=== PATIENT | female | born 1990 ===

== ENCOUNTER 2017-09-24 10:00 | Inpatient (IN) | payer OTHER ==
[2017-09-24] MEDS ORDERED: NS 0.9% 1000 ML* 1,000 ML IV SCH (10:45)
[2017-09-24 10:51] LABS: ABS Basophils 0.1 10^3/ul (0-0.2); ABS Eosinophils 0 10^3/ul (0-0.6); ABS Lymphocytes 1.4 10^3/ul (1.0-4.8); ABS Monocytes 0.5 10^3/ul (0-0.8); ABS Neutrophils 8.3 10^3/ul (1.5-7.7); ABS Nucleated RBC 0 10^3/ul; Eosinophil % 0.2 % (0-6); Hematocrit 31 % (35-47); Hemoglobin 10.3 g/dl (12.0-16.0); Lymphocyte % 13.7 % (25-47); Mean Corpuscular HGB Conc 33 g/dl (31-36); Mean Corpuscular Hemoglobin 28 pg (27-31); Mean Corpuscular Volume 85 fL (80-97); Mean Platelet Volume 8 um3 (7.4-10.4); Nucleated Red Blood Cells % 0; Platelet Count 247 10^3/ul (150-450); Red Blood Count 3.66 10^6/ul (4.0-5.4); Red Cell Distribution Width 15 % (10.5-15); White Blood Count 10.4 10^3/ul (3.5-10.8)
[2017-09-24] MEDS ORDERED: Oxytocin in LR* 20 UNITS/1,000 ML BAG IVPB SCH ×2 (11:00→18:00)
[2017-09-24] MEDS: Insulin REGULAR(*) 1 UNITS UNIT SUBCUT SCH ×5 (12:33→22:01)
[2017-09-24] MEDS ORDERED: OBEPIDURAL* 250 ML EPIDURAL ONE (14:18)
[2017-09-24] MEDS ORDERED: Sodium Citrate/Citric Acid* 15 ML UDC PO PRN (15:01)
[2017-09-24] MEDS ORDERED: Phenylephrine IV* 40 MCG/ML 10 ML SYRINGE IV PUSH PRN ×2 (15:01)
[2017-09-24] MEDS ORDERED: OBEPIDURAL* 250 ML EPIDURAL SCH (16:00)
[2017-09-24] MEDS ORDERED: Dibucaine 1% 28.35 GM TUBE PR PRN (17:39)
[2017-09-24] MEDS ORDERED: Glycerin ADULT SUPP PR PRN (17:39)
[2017-09-24] MEDS ORDERED: Acetaminophen TAB* 325 MG PO PRN (17:39)
[2017-09-24] MEDS ORDERED: Witch Hazel PAD* JAR TOPICAL PRN (17:39)
[2017-09-24] MEDS ORDERED: Lidocaine 1% MPF* 2 ML VIAL ONE (18:16)
[2017-09-24] MEDS ORDERED: Simethicone TAB* 80 MG TAB.CHEW PO SCH (21:00)
[2017-09-24] MEDS: Insulin LISPRO* 1 UNITS UNIT SUBCUT SCH (22:22)
[2017-09-25] MEDS: Ibuprofen TAB* 600 MG PO PRN ×4 (01:13→20:32)
[2017-09-25 05:54] LABS: ABS Basophils 0 10^3/ul (0-0.2); ABS Eosinophils 0 10^3/ul (0-0.6); ABS Lymphocytes 1.8 10^3/ul (1.0-4.8); ABS Neutrophils 10.6 10^3/ul (1.5-7.7); ABS Nucleated RBC 0 10^3/ul; Eosinophil % 0.1 % (0-6); Hematocrit 29 % (35-47); Hemoglobin 9.5 g/dl (12.0-16.0); Lymphocyte % 13.3 % (25-47); Mean Corpuscular HGB Conc 33 g/dl (31-36); Mean Corpuscular Hemoglobin 28 pg (27-31); Mean Corpuscular Volume 85 fL (80-97); Mean Platelet Volume 8 um3 (7.4-10.4); Nucleated Red Blood Cells % 0; Platelet Count 219 10^3/ul (150-450); Red Blood Count 3.39 10^6/ul (4.0-5.4); Red Cell Distribution Width 15 % (10.5-15); White Blood Count 13.5 10^3/ul (3.5-10.8)
[2017-09-25] MEDS: Insulin LISPRO* 1 UNITS UNIT SUBCUT SCH ×4 (07:22→20:32)
[2017-09-25] MEDS: Docusate CAP* 100 MG PO SCH ×4 (08:45→20:32)
[2017-09-25] MEDS: Ferrous Gluconate TAB* 324 MG TAB PO SCH ×2 (08:45→20:32)
[2017-09-26] MEDS: Ibuprofen TAB* 600 MG PO PRN ×2 (04:23→10:34)
[2017-09-26] MEDS: Insulin LISPRO* 1 UNITS UNIT SUBCUT SCH ×2 (06:45→10:47)
[2017-09-26 07:55] VITALS: BP 112/78
[2017-09-26] MEDS: Ferrous Gluconate TAB* 324 MG TAB PO SCH (09:12)
[2017-09-26] MEDS: Docusate CAP* 100 MG PO SCH (09:12)
== END 2017-09-26 13:40 | disposition home or self-care (01) | DRG 775 ==
LOC: MCHOBOUT 10:00 → MCHOB 10:16
PROVIDERS: ADMIT Obstetrics & Gynecology; ATTEND Midwife
PROC: 10907ZC Drainage of Amniotic Fluid, Therapeutic from Products of Conception, Via Natural or Artificial Opening (ICD-10-PCS; principal; 2017-09-24)
PROC: 10E0XZZ Delivery of Products of Conception, External Approach (ICD-10-PCS; 2017-09-24)
PROC: 4A1HXCZ Monitoring of Products of Conception, Cardiac Rate, External Approach (ICD-10-PCS; 2017-09-24)
DX: O69.81X0 Labor and delivery complicated by cord around neck, without compression, not applicable or unspecified (principal); O24.424 Gestational diabetes mellitus in childbirth, insulin controlled; O90.81 Anemia of the puerperium; Z3A.38 38 weeks gestation of pregnancy; Z37.0 Single live birth; O69.82X0 Labor and delivery complicated by other cord entanglement, without compression, not applicable or unspecified; Z83.3 Family history of diabetes mellitus
CPT/HCPCS: 36415; 85025; 86850; 86900; 86901; A9270-GY

== ENCOUNTER 2021-01-04 07:59 | Observation (INO) ==
[~2021-01-04 07:59] MED LIST: Buffered Lidocaine 1% SYRIN 1 ml INTRADERM ONE; Famotidine IV 10 MG/ML 2 ml VIAL (20 mg) IV ONE; Lactated Ringers 1000 ml BAG 1,000 ML IV SCH
[2021-01-04] MEDS ORDERED: Famotidine IV 10 MG/ML 2 ml VIAL (20 mg) ONE (08:20)
[2021-01-04] MEDS ORDERED: ceFOXitin 2 GM IVPREMIX 2 GM/50 ML BAG ONE (08:20)
[2021-01-04] MEDS ORDERED: Midazolam 5 mg/5 ml VIAL 1 mg/ml 5 ml VIAL (5 mg) ONE (09:39)
[2021-01-04] MEDS ORDERED: Rocuronium 50 mg VIAL 10 mg/ml 5 ml VIAL (50 mg) ONE ×2 (09:45→11:00)
[2021-01-04] MEDS ORDERED: fentaNYL 100 mcg/2 ml 50 MCG/ML VIAL ONE ×2 (09:50→10:18)
[2021-01-04] MEDS ORDERED: HYDROmorphone 1 MG/1 ML SYRINGE IV PRN (10:05)
[2021-01-04] MEDS ORDERED: DiMENhydriNATE IV 50 mg/ml 1 ml VIAL IV PUSH PRN (10:05)
[2021-01-04] MEDS ORDERED: Naloxone 0.4 mg VIAL 0.4 mg/ml 1 ml VIAL IV PRN (10:05)
[2021-01-04] MEDS ORDERED: Dexamethasone IV 4 MG/ML VIAL 1 ml VIAL ONE (10:16)
[2021-01-04] MEDS ORDERED: DiMENhydriNATE IV 50 mg/ml 1 ml VIAL ONE (10:16)
[2021-01-04] MEDS ORDERED: Propofol 10 MG/ML 20 ML BTL ONE (10:16)
[2021-01-04] MEDS ORDERED: Succinylcholine 200 mg VIAL 20 mg/ml 10 ml VIAL (200 mg) ONE (10:16)
[2021-01-04] MEDS ORDERED: Ondansetron 4 mg VIAL 2 MG/ML 2 ml VIAL ONE (10:16)
[2021-01-04] MEDS ORDERED: Lidocaine 2% PF 5 ML VIAL ONE (10:17)
[2021-01-04] MEDS ORDERED: Acetaminophen IV 1 GM/100ML 100 ML ONE (10:17)
[2021-01-04] MEDS ORDERED: HYDROmorphone 1 MG/1 ML SYRINGE ONE (11:18)
[2021-01-04] MEDS ORDERED: Ondansetron 4 mg VIAL 2 MG/ML 2 ml VIAL IV PRN (11:59)
[2021-01-04] MEDS: Lactated Ringers 1000 ml BAG 1,000 ML IV SCH ×2 (13:49→21:46)
[2021-01-04 14:11] LABS: Urine Appearance Clear; Urine Bilirubin Negative (Negative); Urine Blood Negative (Negative); Urine Color Yellow; Urine Glucose Negative (Negative); Urine Ketones 1+ (Negative); Urine Nitrite Negative (Negative); Urine Protein 1+(30 mg/dL) (Negative); Urine Specific Gravity 1.025 (1.002-1.030); Urine Urobilinogen Negative (Negative)
[2021-01-04 14:17] LABS: Urine Bacteria Absent (Absent); Urine Red Blood Cell Trace(0-2/hpf) (Absent); Urine Squamous Epithelial Cell Present (Absent); Urine White Blood Cell Trace(0-5/hpf) (Absent)
[2021-01-04] MEDS: oxyCODONE/Acetamin 5/325 mg TAB PO PRN (21:02)
[2021-01-05] MEDS: Lactated Ringers 1000 ml BAG 1,000 ML IV SCH (05:43)
[2021-01-05 05:53] LABS: ABS Basophils 0.1 10^3/ul (0-0.2); ABS Lymphocytes 2.4 10^3/ul (1.0-4.8); ABS Monocytes 1.2 10^3/ul (0-0.8); Eosinophil % 0.1 %; Hematocrit 33 % (35-47); Lymphocyte % 20.8 %; Mean Corpuscular HGB Conc 33 g/dL (31-36); Mean Corpuscular Hemoglobin 29 pg (27-31); Mean Corpuscular Volume 86 fL (80-97); Mean Platelet Volume 7.8 fL (7.4-10.4); Platelet Count 279 10^3/uL (150-450); Red Blood Count 3.87 10^6 /uL (3.70-4.87); Red Cell Distribution Width 16 % (10-15); White Blood Count 11.6 10^3/uL (3.5-10.8)
[2021-01-05 07:58] VITALS: BP 122/77
[2021-01-05] MEDS: oxyCODONE/Acetamin 5/325 mg TAB PO PRN (08:10)
[2021-01-05] MEDS ORDERED: Ondansetron ODT 4 mg TAB 4 MG TAB PO ONE (10:00)
== END 2021-01-05 11:15 | disposition home or self-care (01) ==
LOC: SSU 07:59 → OR 07:59
PROVIDERS: ADMIT Obstetrics & Gynecology; ATTEND Obstetrics & Gynecology